=== PATIENT | female | born 1970 | race African-American/Black ===

== ENCOUNTER 2016-08-22 17:37 | Emergency (ER) | payer MEDICAID ==
[~2016-08-22] VITALS: Ht 154.9 cm; Wt 56.7 kg
[2016-08-22] MEDS ORDERED: IPRATROPIUM BROM 0.5 MG/2.5ML INH SOL NEB ONE (21:00)
[2016-08-22] MEDS ORDERED: ALBUTEROL SULF 2.5 MG/0.5ML(0.5%) NEB SOLN NEB ONE (21:00)
[2016-08-22 21:23] VITALS: BP 147/79
== END 2016-08-22 21:32 | disposition home or self-care (01) ==
LOC: ER 17:42
DX: J20.9 Acute bronchitis, unspecified (principal); J45.901 Unspecified asthma with (acute) exacerbation; F17.210 Nicotine dependence, cigarettes, uncomplicated
CPT/HCPCS: 71020; 94640